=== PATIENT | female | born 1970 | race Two or more races ===

== ENCOUNTER → 2016-12-22 | Outpatient (CLI) | payer OTHER ==
--- NOTE | 2016-12-22 15:16 | RADRPT ---
PROCEDURE: XR pelvis/right hip. CLINICAL INDICATION: Hip pain TECHNIQUE: AP pelvis/AP and lateral hip views performed COMPARISON: No prior studies are available for comparison. FINDINGS: There is mild right hip osteoarthrosis involving the superior lateral aspect of the acetabulum. This is associated with joint space narrowing, subchondral sclerosis and osteophytosis. There is normal mineralization. No fractures or osseous lesions are identified. The soft tissues are unremarkable . IMPRESSION: Mild right hip osteoarthrosis involving the superior lateral aspect of the acetabulum. RPTAT: [facility] .Jerome Paiz MD, MD Date Time Electronically viewed and signed by .Jerome Paiz MD, on 12/22/2016 15:16 .B/
== END | disposition home or self-care (01) ==
LOC: HKI 13:46
PROVIDERS: ATTEND Orthopaedic Surgery
DX: M70.61 Trochanteric bursitis, right hip (principal); M63.85 Disorders of muscle in diseases classified elsewhere, thigh; M25.551 Pain in right hip
CPT/HCPCS: 73502; Z7500; G0463